=== PATIENT | female | born 1985 | race Two or more races ===

== ENCOUNTER 2018-04-12 19:26 | Emergency (ER) | payer OTHER ==
[~2018-04-12] VITALS: Ht 152.4 cm; Wt 77.1 kg
[~2018-04-12 19:26] MED LIST: CIPRO500 MG PO; KETO10TA2 PO
[2018-04-12] MEDS ORDERED: ORTHO TRI-CYCL1 EAC1 (19:52)
== END 2018-04-12 23:23 | disposition home or self-care (01) ==
LOC: ER 19:26
DX: K52.89 Other specified noninfective gastroenteritis and colitis (principal)

== ENCOUNTER 2021-02-04 10:11 | Outpatient (CLI) | payer OTHER ==
[~2021-02-04 10:11] MED LIST changes: +ORTHO TRI-CYCL1 EAC1
== END 2021-02-04 10:12 | disposition home or self-care (01) ==
LOC: LAB 10:11
PROVIDERS: ATTEND Pediatrics Neonatal-Perinatal Medicine
DX: Z03.818 Encounter for observation for suspected exposure to other biological agents ruled out (principal)

== ENCOUNTER 2021-02-07 09:45 | Outpatient (CLI) | payer OTHER | END 2021-02-07 09:55 | disposition home or self-care (01) | LOC: LAB 09:45 | PROVIDERS: ATTEND Pediatrics Neonatal-Perinatal Medicine | DX: Z03.818 Encounter for observation for suspected exposure to other biological agents ruled out (principal) ==

== ENCOUNTER 2021-02-11 10:28 | Outpatient (CLI) | payer OTHER | END 2021-02-11 13:54 | disposition home or self-care (01) | LOC: LAB 10:28 | DX: Z03.818 Encounter for observation for suspected exposure to other biological agents ruled out (principal) ==

== ENCOUNTER 2021-02-14 10:17 | Outpatient (CLI) | payer OTHER | END 2021-02-14 10:26 | disposition home or self-care (01) | LOC: LAB 10:17 | PROVIDERS: ATTEND Pediatrics Neonatal-Perinatal Medicine | DX: R05 Cough (principal); R06.02 Shortness of breath; Z03.818 Encounter for observation for suspected exposure to other biological agents ruled out ==

== ENCOUNTER → 2021-02-18 09:07 | Outpatient (CLI) | payer OTHER | END | disposition home or self-care (01) | LOC: LAB 09:07 | PROVIDERS: ATTEND Pediatrics Neonatal-Perinatal Medicine | DX: Z03.818 Encounter for observation for suspected exposure to other biological agents ruled out (principal) ==